=== PATIENT | male | born 1985 | race Caucasian/White ===

== ENCOUNTER 2017-09-04 13:06 | Emergency (ER) | payer MEDICAID, OTHER ==
[~2017-09-04] VITALS: Ht 175.3 cm; Wt 78.0 kg
[2017-09-04] MEDS ORDERED: HYDROCODONE/ACETAMINOPHEN 5/325MG TABLET PO ONE (18:15)
[2017-09-04 18:39] LABS: BASOPHILS % 0.9 % (0.0-2.0); HEMOGLOBIN. 14.6 g/dL (14.0-18.0); LYMPHOCYTES % 23.9 % (20.0-50.0); MEAN CORPUSCULAR HEMOGLOBIN 31.2 pg (28.0-32.0); MEAN PLATELET VOLUME 7.6 fl (7.4-10.4); NEUTROPHILS % 66.2 % (40.0-76.0); PLATELET 218 x1000/uL (130-400); RED BLOOD CELL COUNT 4.67 mill/uL (4.7-6.1); RED CELL DISTRIBUTION WIDTH 13.6 % (11.6-14.6)
[2017-09-04 18:49] LABS: CARBON DIOXIDE 26 mEq/L (21-32); CHLORIDE 104 mEq/L (98-107)
[2017-09-04] MEDS ORDERED: MORPHINE SULFATE 4 MG/ML CPJ (NOT FOR IM USE) IV ONE (20:30)
[2017-09-04 20:35] LABS: CLARITY URINE CLEAR (CLEAR); COLOR URINE DARK YELLOW (YELLOW); GLUCOSE URINE NEGATIVE (NEGATIVE); KETONES URINE 3+ (NEGATIVE); LEUKOCYTE ESTERASE URINE NEGATIVE (NEGATIVE); NITRITE URINE NEGATIVE (NEGATIVE); OCCULT BLOOD URINE NEGATIVE (NEGATIVE); PROTEIN URINE NEGATIVE (NEGATIVE); SPECIFIC GRAVITY URINE 1.035 (1.005-1.030)
[2017-09-04 20:48] LABS: *AMPHETAMINES SCREEN URINE NEGATIVE (NEGATIVE); *BARBITURATES SCREEN URINE NEGATIVE (NEGATIVE); *BENZODIAZEPINES SCREEN URINE NEGATIVE (NEGATIVE); *COCAINE SCREEN URINE NEGATIVE (NEGATIVE); CANNABINOID URINE SCREEN PRESUMTIVE POSITIVE (NEGATIVE); METHADONE URINE SCREEN NEGATIVE (NEGATIVE); OPIATES URINE SCREEN NEGATIVE (NEGATIVE); PHENCYCLIDINE URINE SCREEN NEGATIVE (NEGATIVE)
[2017-09-04 21:42] VITALS: BP 129/73
== END 2017-09-04 21:47 | disposition home or self-care (01) ==
LOC: ER 13:06
DX: E86.0 Dehydration (principal); F12.10 Cannabis abuse, uncomplicated; M54.5 Low back pain; K57.30 Diverticulosis of large intestine without perforation or abscess without bleeding; J98.11 Atelectasis; R07.2 Precordial pain; R78.89 Finding of other specified substances, not normally found in blood
CPT/HCPCS: 36415; 71010; 74176; 80053; 80305; 81003; 83036; 85025; 85651; 93005; 96374; 99285; J2270

== ENCOUNTER 2021-05-03 16:58 | Emergency (ER) | payer MEDICAID, OTHER ==
[~2021-05-03] VITALS: Ht 172.7 cm; Wt 89.0 kg
[2021-05-03] MEDS ORDERED: SODIUM CHLORIDE 0.9% 1,000 ML IV ONE (17:30)
[2021-05-03] MEDS ORDERED: MORPHINE SULFATE 4 MG/ML CPJ (NOT FOR IM USE) IV STA (17:30)
[2021-05-03] MEDS ORDERED: ONDANSETRON HCL 4MG/2ML INJ IV STA (17:30)
[2021-05-03 18:06] LABS: BASOPHILS % 0.5 % (0.0-2.0); EOSINOPHILS % 0.1 % (0.0-5.0); HEMATOCRIT. 45.1 % (42.0-52.0); HEMOGLOBIN. 15.8 g/dL (14.0-18.0); LYMPHOCYTES % 19.6 % (20.0-50.0); MEAN CORPUSCULAR HEMOGLOBIN 29.8 pg (28.0-32.0); MEAN PLATELET VOLUME 7.7 fl (7.4-10.4); MONOCYTES % 13.1 % (2.0-8.0); NEUTROPHILS % 66.7 % (40.0-76.0); PLATELET 214 x1000/uL (130-400); RED BLOOD CELL COUNT 5.31 mill/uL (4.7-6.1); RED CELL DISTRIBUTION WIDTH 14.6 % (11.6-14.6)
[2021-05-03 18:07] LABS: CHLORIDE 100 mEq/L (98-107)
[2021-05-03 19:26] LABS: CLARITY URINE CLEAR (CLEAR); COLOR URINE DARK YELLOW (YELLOW); KETONES URINE 2+ (NEGATIVE); LEUKOCYTE ESTERASE URINE NEGATIVE (NEGATIVE); NITRITE URINE NEGATIVE (NEGATIVE); OCCULT BLOOD URINE NEGATIVE (NEGATIVE); PH URINE 5.5 (4.5-8.0); PROTEIN URINE 2+ (NEGATIVE); SPECIFIC GRAVITY URINE 1.035 (1.005-1.030)
[2021-05-03] MEDS ORDERED: MAGNESIUM/ALUMINUM HYDROXIDE/SIMETHICONE 30ML UDC PO ONE (19:45)
[2021-05-03 20:00] VITALS: BP 139/68
== END 2021-05-03 20:00 | disposition home or self-care (01) ==
LOC: ER 16:58
DX: R19.7 Diarrhea, unspecified (principal); F12.10 Cannabis abuse, uncomplicated
CPT/HCPCS: 36415; 80053; 81003; 83690; 85025; 96361; 96374; 96375; 99284; J2270; J2405; J7030

== ENCOUNTER 2021-05-06 21:13 | Emergency (ER) | payer MEDICAID ==
[~2021-05-06] VITALS: Ht 177.8 cm; Wt 89.0 kg
[2021-05-06] MEDS ORDERED: ACETAMINOPHEN 325MG TABLET PO ONE (23:30)
[2021-05-07] MEDS ORDERED: HYDR25SU37 RC (01:28)
[2021-05-07] MEDS ORDERED: ACET-2708 MT (01:28)
[2021-05-07] MEDS ORDERED: NAPR-1176 MT (01:28)
[2021-05-07] MEDS ORDERED: HYDROCODONE/ACETAMINOPHEN 5/325MG TABLET PO ONE (01:30)
[2021-05-07 02:08] VITALS: BP 126/86
== END 2021-05-07 02:10 | disposition home or self-care (01) ==
LOC: ER 21:13
DX: K64.4 Residual hemorrhoidal skin tags (principal); F12.10 Cannabis abuse, uncomplicated
CPT/HCPCS: 99283